=== PATIENT | male | born 1955 | race Caucasian/White ===

== ENCOUNTER → 2017-01-04 | Day surgery (SDC) | payer MEDICARE ==
[~2017-01-04] MED LIST: BACTRIM DS TABL1 TA2 PO; BACTROBAN22 GM TOP; CERTAGEN PO; CLEOCIN HCL300 M1 PO; HYDROCODON-ACE1 EAC7 PO; KLONOPIN PO; KLONOPIN0.5 MG PO; LEXAPRO PO; LIBRIUM PO; LIPITOR20 MG PO; LISINOPRIL PO; LODINE PO; LOSARTAN POTASS50 MG PO; MOBIC15 MG PO; MULTIPLE VITAM1 EAC1; NO MEDICATIONS; VITAMIN D35000 UNI1 PO
--- NOTE | ~2017-01-04 | OR ---
Unit #: [id number] #: [id number] Patient: JENNA CASTRO [id number] [address] [place], [place] [address] [id number] O MR#: [id number] NAME: JENNA CASTRO ROOM: Date of Procedure: 01/04/2017 Admission Date: 01/04/2017 Surgeon: Rad Kuo M.D. : 1955 Attending Physician: Rad Kuo M.D. Referring Physician: Rad Kuo M.D. Primary Care Physician: Denny Bernal M.D. OPERATIVE REPORT PRIMARY CARE PHYSICIAN Denny Bernal M.D. PREOPERATIVE DIAGNOSIS Colorectal cancer screening in an average-risk patient. PROCEDURES PERFORMED Colonoscopy and polypectomy. POSTOPERATIVE DIAGNOSES 1. The patient had 2 sessile polyps, the first one was a diminutive polyp about 5 mm in proximal ascending colon and the second polyp was in the distal sigmoid colon about a 1 cm in size. It was sessile polyp. Both the polyps were removed using snare polypectomy. They were retrieved and sent for histology. 2. The patient had mild sigmoid and descending colon diverticulosis. 3. Rest of the examination up to cecum and terminal ileum was normal. The quality of the prep was excellent. RECOMMENDATIONS 1. Follow up results of polyp histology. 2. Consider repeat colonoscopy in 5 years. SEDATION USED MAC. DESCRIPTION OF PROCEDURE Following detailed explanation of the potential risks and complications of a colonoscopy, namely perforation, bleeding, and complications related to sedation, the patient was brought to GI lab and laid in the left lateral decubitus position. A digital rectal examination was performed, which was normal. Lubricated tip of the Olympus video colonoscope was inserted through the anus and advanced under direct vision. The scope was advanced and passed up to sigmoid into descending colon. Scant small diverticula were noted in this area. The scope tip was then navigated all the way up to cecum with visualization of the ileocecal valve and the appendiceal orifice. Preparation was excellent with good visualization and photodocumentation was obtained. Last several inches of the terminal ileum also visualized after intubation of the ileocecal valve and appeared normal. Successive segments of the colonic mucosa were examined upon withdrawal. A single sessile polyp about 5 mm in size in the proximal ascending colon. This was removed using snare polypectomy. The polyp was Unit #: [id number] #: [id number] Patient: JENNA CASTRO retrieved and sent for histology. A second larger polyp about a 1 cm in size was seen in the distal sigmoid colon, was also removed using snare cautery polypectomy. It was retrieved and sent for histology. Excellent hemostasis was achieved and photodocumentation was obtained. No additional polyps noted. Other than the scant diverticula seen in the left side, the patient did not have any other abnormalities. No hemorrhoids were seen at the anal verge. The scope was then withdrawn. The patient returned to the recovery area. He tolerated the procedure without any postprocedure complications. Dictated by... Castro Lizarraga/ira TD: 01/04/2017 17:17 JOB #: [id number] CC: Denny Bernal M.D. OPERATIVE REPORT Page 1 of 1 X Rad Kuo MD X PROCEDURE OPERATIVE NOTE
== END | disposition home or self-care (01) ==
LOC: COPS 12:49
DX: Z12.11 Encounter for screening for malignant neoplasm of colon (principal); D12.5 Benign neoplasm of sigmoid colon; K57.30 Diverticulosis of large intestine without perforation or abscess without bleeding; K21.9 Gastro-esophageal reflux disease without esophagitis; I10 Essential (primary) hypertension; E78.5 Hyperlipidemia, unspecified; Z88.2 Allergy status to sulfonamides; Z88.1 Allergy status to other antibiotic agents; Z98.890 Other specified postprocedural states
CPT/HCPCS: 88305